=== PATIENT | male | born 1950 | race Caucasian/White ===

== ENCOUNTER → 2019-10-05 08:53 | Outpatient (CLI) | payer OTHER, SELFPAY ==
[2019-10-05 11:37] LABS: Coronavirus 19 IgG Antibody Negative (Negative); Coronavirus 19 IgM Antibody Negative (Negative)
== END ==
PROVIDERS: Visit Provider Ophthalmology
DX: Z01.818 Encounter for other preprocedural examination (principal)
CPT/HCPCS: 36415; 86328

== ENCOUNTER 2019-10-06 08:56 | Day surgery (SDC) | payer OTHER, SELFPAY ==
--- NOTE | 2019-09-30 12:11 | SUR.PREOP ---
09/30/2019 @ 1200-PHONE CALL MADE TO PATIENT. PATIENT UNDERSTANDS THAT LAB WORK AND COVID TESTING NEEDS TO BE COMPLETED @ 0900 ON 10/05/2019. PATIENT UNDERSTANDS IF LAB WORK AND COVID-19 TESTS ARE NOT COMPLETED BY 12PM ON THAT DATE, THE SURGERY SCHEDULED WILL BE CANCELLED AND RESCHEDULED FOR ANOTHER TIME.
[2019-10-01 13:29] VITALS: BMI 25.5
[2019-10-06] VITALS (7 sets, daily range): BP systolic 139–157; BP diastolic 74–90; PULSE 46–57; RESP 18–20; TEMP 36.2–36.3; O2SAT 99–100
== END 2019-10-06 11:06 | disposition home or self-care (01) ==
LOC: OR 09:00
PROVIDERS: PCP Family Medicine; Visit Provider Ophthalmology
PROC: (CPT 66984; principal; 2019-10-06 11:30)
DX: H26.9 Unspecified cataract (principal); M19.90 Unspecified osteoarthritis, unspecified site; K21.9 Gastro-esophageal reflux disease without esophagitis; H91.90 Unspecified hearing loss, unspecified ear; Z95.1 Presence of aortocoronary bypass graft; Z83.518 Family history of other specified eye disorder; Z79.82 Long term (current) use of aspirin; Z79.899 Other long term (current) drug therapy; Z88.6 Allergy status to analgesic agent
CPT/HCPCS: 66984; V2632